=== PATIENT | female | born 1945 | race Caucasian/White ===

== ENCOUNTER 2016-07-20 06:44 | Inpatient (IN) | payer OTHER ==
[2016-07-01 10:48] VITALS: BMI 33.0
--- NOTE | 2016-07-01 11:24 | PAT Medication Instructions ---
Service Date Jul 01, 2016. Current Home Medication List Aspirin (Aspirin Ec), 81 MG PO QAM Carvedilol (Coreg), 1 TAB PO BID Lisinopril (Zestril), 20 MG PO QAM Metformin Hcl (Glucophage), 500 MG PO BID Pantoprazole (Protonix), 40 MG PO QAM Sertraline (Zoloft), 50 MG PO QAM Solifenacin (Vesicare), 10 MG PO QAM Tramadol (Ultram), 50 MG PO Q8H PRN for Pain Medication Instructions For Your Scheduled Surgery - Hold the following medications 48 hours prior to surgery: Metformin Hcl (Glucophage), 500 MG PO BID - Hold the following medications the morning of surgery: Solifenacin (Vesicare), 10 MG PO QAM Lisinopril (Zestril), 20 MG PO QAM - Take the following medications the morning of surgery with a sip of water: Sertraline (Zoloft), 50 MG PO QAM Pantoprazole (Protonix), 40 MG PO QAM Carvedilol (Coreg), 1 TAB PO BID Aspirin (Aspirin Ec), 81 MG PO QAM Tramadol (Ultram), 50 MG PO Q8H PRN for Pain (okay to take up to 4 hours prior to surgery if needed) - Take the following medications as scheduled the night before surgery: Carvedilol (Coreg), 1 TAB PO BID Tramadol (Ultram), 50 MG PO Q8H PRN for Pain (if needed) If you have any questions please call us at [phone] (Radha Rosado PA-C) or [phone] or [phone]
[2016-07-01 12:00] LABS: BASO % 0.5 %; BASO ABS # 0.05 K/uL (0-0.2); COMPLETE YES; EOS % 3.3 %; HEMATOCRIT 42.4 % (37-47); IG% 0.9 %; LYMPH % 18.9 %; LYMPH ABS # 1.99 K/uL (1.2-3.4); MEAN CELL VOLUME 84.3 fL (80-100); MEAN CORPUSCULAR HEMOGLOBIN 28.6 pg (25-34); MEAN PLATELET VOLUME 10.3 fL (7.4-10.4); MONO % 7.3 %; NEUT % 69.1 %; PLATELET COUNT 240 K/uL (130-400); RED BLOOD COUNT 5.03 M/uL (4.2-5.4); WHITE BLOOD COUNT 10.51 K/uL (4.8-10.8)
--- NOTE | 2016-07-01 12:10 | DIAGNOSTIC IMAGING REPORT ---
CHEST PREADMISSION(PA/LAT) HISTORY: Preop. COMPARISON: None. FINDINGS: The lungs are clear. Cardiac silhouette is normal in size. No pleural effusions. No pneumothorax. Prior cholecystectomy. IMPRESSION: No acute process. Electronically signed by: Porfirio Keyes M.D. 07/01/2016 12:08 PM
[2016-07-01 12:12] LABS: PROTHROMBIN TIME (PATIENT) 10.8 SECONDS (9.0-12.0)
[2016-07-01 12:28] LABS: BUN/CREATININE RATIO 13.6 (10-20); CALCIUM 8.8 mg/dl (8.5-10.1); CREATININE 0.76 mg/dl (0.60-1.20); POTASSIUM 4.2 mmol/L (3.5-5.1)
[2016-07-01 12:50] LABS: ESTIMATED AVERAGE GLUCOSE 157 mg/dl; HA1C FLAG Normal (Normal)
--- NOTE | 2016-07-19 13:21 | HISTORY & PHYSICAL EXAMINATION ---
DATE OF ADMISSION: 07/20/2016 CHIEF COMPLAINT: Right knee pain. HISTORY OF PRESENT ILLNESS: Ms. Alvarado is a 70-year-old female with a multiple-year history of pain in her right knee. The patient rates her pain an 8/10. She has pain with her daily activities. She has limited standing and walking tolerance. Pain is worse with weightbearing. The patient has had injections, home exercise program, tramadol and Tylenol. She has failed conservative treatment and is scheduled for right knee replacement. PAST MEDICAL HISTORY: Heart disease with 2 stents, diabetes with an A1c of 6.5, anxiety. She denies DVT. PAST SURGICAL HISTORY: Hysterectomy, cholecystectomy and cardiac angiography. SOCIAL HISTORY: The patient denies alcohol or tobacco use. She lives in a single story home. She is and retired. FAMILY HISTORY: Negative for DVT. MEDICATIONS: Aspirin 81 mg, pantoprazole 40 mg, sertraline 50 mg, carvedilol 6.25 mg b.i.d., lisinopril 20 mg daily, metformin 500 mg b.i.d., tramadol 50 mg p.r.n., Detrol-LA. ALLERGIES: NSAIDS CAUSES FLUSHING IN HIGH DOSES. REVIEW OF SYSTEMS: See HPI. Ten other systems reviewed, all negative. PHYSICAL EXAMINATION: VITAL SIGNS: Height 5 foot 5, weight 205 pounds. BMI 34. GENERAL: This is a well-developed, well-nourished female who is alert and oriented x3. Mood and affect are appropriate. HEENT: Normocephalic, atraumatic. Mucous membranes are moist and intact. NECK: Supple without lymphadenopathy. HEART: Regular rate and rhythm without murmurs, rubs or gallops. LUNGS: Clear to auscultation without wheezes or rhonchi. ABDOMEN: Soft and nontender. Bowel sounds are equal and active. EXTREMITIES: No ecchymosis, redness or warmth. She has neutral alignment. Range of motion is from 0-115 degrees with no laxity. She is neurovascularly intact with +5/5 strength. X-RAY EXAMINATION: AP and lateral views show joint space narrowing and osteophyte formation. IMPRESSION: 1. Degenerative joint disease, right knee. 2. Diabetes. PLAN: The patient will be admitted for a right total knee arthroplasty. Her PCP is Dr. Donny Cruz in [place]. She is planning [facility] for home physical therapy.
[~2016-07-20] VITALS: Ht 165.1 cm; Wt 93.2 kg
[2016-07-20] VITALS (8 sets, daily range): BP systolic 134–161; BP diastolic 75–92; PULSE 76–102; TEMP 36.4–36.9; O2SAT 93–98; BMI 34.0
[~2016-07-20 06:44] MED LIST: ACETAMINOPHEN 500 MG TAB PO SCH; ASPI81TA28 PO; BUPIVACAINE 0.25% 30 ML VIAL ONE; BUPIVACAINE 0.5 % 5 MG/1 ML PF 10ML VIAL ONE; CARV6.252 PO; CEFAZOLIN 2000 MG/60 ML D5W 60 ML IV SCH; CeleBREX 200 MG CAP PO SCH; DEXAMETHASONE 4 MG TAB PO SCH; FAMOTIDINE 20 MG TAB PO SCH; GABAPENTIN 300 MG CAP PO SCH; GLC/500 PO; LACTATED RINGER'S 1000ML 1,000 ML IV SCH; LACTATED RINGER'S 1000ML 500 ML IV ONE; LISI-725 PO; METOCLOPRAMIDE HCL 10 MG TAB PO SCH; OXYCODONE HCL 10 MG TABCR (OXYCONTIN) PO SCH; PANT40TA PO; POLYMYXIN B SULFATE 100,000 UNITS in NSS 100ML IR SCH; ROPIVACAINE 5MG/ML 30 ML 150 MG, BUPIVACAINE/EPINEPHR 0.5% MPF 30 ML, KETOROLAC TROMETH... INFIL SCH; SERT50TA PO; SOLI10TA2 PO; TRAM-10 PO; VANCOMYCIN INJ 400 MG in NSS 100ML IR SCH; [UNRECOGNIZED DRUG - REMARK] SCH
[2016-07-20] MEDS ORDERED: FENTANYL CITRATE INJ 50 MCG/1 ML 2 ML VIAL ONE (07:48)
[2016-07-20] MEDS ORDERED: MIDAZOLAM HCL 1 MG/ML 2ML VIAL ONE (07:48)
--- NOTE | 2016-07-20 08:24 | History & Physical Bridge Note ---
H&P Re-Evaluation Bridge Note: I have examined the patient, reviewed the History & Physical and in the interval since the performance of the History & Physical I have noted the following changes of clinical significance: No changes noted
[2016-07-20] MEDS ORDERED: ONDANSETRON INJ 2 MG/ML 2 ML VIAL IV PRN ×2 (08:30→12:30)
[2016-07-20] MEDS ORDERED: FENTANYL CITRATE INJ 50 MCG/1 ML 2 ML VIAL IV PRN (08:30)
[2016-07-20] MEDS ORDERED: ATROPINE SULFATE 0.1 MG/ML 5ML SYR IV PRN (08:30)
[2016-07-20] MEDS ORDERED: EpHEDrine SULFATE INJ 50 MG/ML AMP IV PRN (08:30)
[2016-07-20] MEDS: TRANEXAMIC ACID INJ 1,000 MG in SODIUM CHLORIDE 0.9% 100ML 100 ML IV SCH ×2 (08:40→15:18)
[2016-07-20] MEDS ORDERED: ORTHO JOINT ANESTHETIC ONE (09:15)
[2016-07-20] MEDS ORDERED: LIDOCAINE HCL 2% 2 ML VIAL (20MG/ML) ONE (11:26)
[2016-07-20] MEDS ORDERED: PROPOFOL IV EMULSION 10 MG/ML 20 ML VIAL IV ONE (11:26)
[2016-07-20] MEDS ORDERED: PHENYLEPHRINE 100MCG/ML 5ML SYR ONE (12:19)
[2016-07-20] MEDS ORDERED: BUPIVACAINE/EPINEPHRINE 0.25% 1:200,000 30 ML VIAL INJ ONE (12:24)
[2016-07-20] MEDS ORDERED: BACITRACIN 50000 UNIT VIAL IR ONE (12:24)
[2016-07-20] MEDS ORDERED: POVIDONE-IODINE OP SOLN 30 ML BTL TOP ONE (12:24)
--- NOTE | 2016-07-20 12:26 | [facility] Post Operative Brief Note ---
Immediate Operative Summary Operative Date Jul 20, 2016. Pre-Operative Diagnosis Right Knee Degenerative Joint Disease Post-Operative Diagnosis Right Knee Degenerative Joint Disease Procedure(s) Performed Right Total Knee Arthroplasty Cemented Surgeon Dr. Dada Kendall Icer Hand Surgeon(s) Jose Rafael Lutz PA-C Estimated Blood Loss 50ML Findings djd Specimens A. Right Knee Bone and Tissue Complication(s) None Disposition Recovery Room / PACU
[2016-07-20] MEDS ORDERED: ALUMINUM/MAGNESIUM/SIMETH (MAALOX MAX) 30 ML UDC PO PRN (12:30)
[2016-07-20] MEDS ORDERED: METOCLOPRAMIDE HCL INJ 5 MG/ML 2 ML VIAL IV PRN (12:30)
[2016-07-20] MEDS ORDERED: MoRPHine SULFATE 2 MG/ML CARP IV PRN (12:30)
[2016-07-20] MEDS ORDERED: SOD PHOSPHATE/SOD BIPHOSPHATE ENEMA 132 ML BTL PR PRN (12:30)
[2016-07-20] MEDS ORDERED: DiphenhydrAMINE HCL 50 MG/ML VIAL IV PRN (12:30)
[2016-07-20] MEDS ORDERED: TRAMADOL HCL 50 MG TAB PO PRN (12:30)
[2016-07-20] MEDS ORDERED: ZOLPIDEM TARTRATE 5 MG TAB PO PRN (12:30)
[2016-07-20] MEDS ORDERED: BISACODYL 10 MG SUPP PR PRN (12:30)
[2016-07-20] MEDS ORDERED: MAGNESIUM HYDROXIDE SUSP 30 ML UDC PO PRN (12:30)
[2016-07-20] MEDS ORDERED: PHARMACY GLYCEMIC MGMT CONSULT PRN (12:35)
--- NOTE | 2016-07-20 13:37 | DIAGNOSTIC IMAGING REPORT ---
TWO VIEWS RIGHT KNEE CLINICAL HISTORY: Postoperative examination. FINDINGS: AP and crosstable lateral portable views of the right knee are obtained. A right knee arthroplasty is in near anatomic alignment. There has been undersurface remodeling of the patella. No acute fracture is seen. There are expected postoperative changes around the knee including skin clips, a surgical drain, soft tissue edema, and subcutaneous gas. IMPRESSION: Expected postoperative changes status post right knee arthroplasty. No acute fracture is seen. Electronically signed by: Jayden Rooney M.D. 07/20/2016 1:35 PM Dictated Date/Time: 07/20/2016 1:34 PM
--- NOTE | 2016-07-20 14:02 | Anesthesiology Progress Note ---
Anesthesia Post Op Note Date & Time Jul 20, 2016 at 14:02 Vital Signs Pain Intensity: 0 Vital Signs Past 12 Hours Date Time Temp Pulse Resp B/P Pulse Ox O2 Delivery O2 Flow Rate FiO2 07/20/16 13:57 85 10 07/20/16 13:57 85 10 98 07/20/16 13:53 140/68 07/20/16 13:52 86 14 98 07/20/16 13:52 86 14 07/20/16 13:48 130/71 07/20/16 13:47 86 19 98 07/20/16 13:47 87 19 07/20/16 13:43 128/77 07/20/16 13:42 84 12 98 07/20/16 13:42 85 12 07/20/16 13:38 143/67 07/20/16 13:37 83 14 07/20/16 13:37 83 14 97 07/20/16 13:33 138/75 07/20/16 13:32 85 16 97 07/20/16 13:32 85 16 07/20/16 13:28 133/75 07/20/16 13:27 84 17 07/20/16 13:27 84 17 97 07/20/16 13:23 136/76 07/20/16 13:22 83 13 07/20/16 13:22 83 13 97 07/20/16 13:18 126/81 07/20/16 13:17 85 16 97 07/20/16 13:17 84 16 07/20/16 13:13 122/70 07/20/16 13:12 82 13 97 07/20/16 13:12 83 13 07/20/16 13:08 128/76 07/20/16 13:07 83 13 97 07/20/16 13:07 82 13 07/20/16 13:03 124/70 07/20/16 13:02 85 18 07/20/16 13:02 86 18 96 07/20/16 13:02 36.7 83 16 131/71 95 Nasal Cannula 2 07/20/16 08:21 36.7 76 20 147/78 95 Room Air Notes Mental Status: alert / awake / arousable, participated in evaluation Pt Amnestic to Procedure: Yes Nausea / Vomiting: adequately controlled Pain: adequately controlled Airway Patency, RR, SpO2: stable & adequate BP & HR: stable & adequate Hydration State: stable & adequate Neuraxial Anesthesia: was administered, sensory block is resolving Anesthetic Complications: no major complications apparent
--- NOTE | 2016-07-20 15:23 | Pharmacy Progress Note ---
Glycemic Control Intl Consult Date of Service Jul 20, 2016. Scope Glycemic Pharmacist consulted by Dr Kendall on 07/20/2016 for glycemic control and to write orders per [facility] inpatient glycemic control protocol Objective Weight (Kilograms): 93.200 Accuchecks BSG (last 24hrs): Test 07/20/16 08:05 07/20/16 13:18 Bedside Glucose 179 mg/dl (70-90) 206 mg/dl (70-90) HbA1c Test 07/01/16 11:34 Hemoglobin A1c 7.1 % (4.5-5.6) H Recent Pertinent Medications Outpatient Anti-diabetic Regimen: * metformin 500 mg BID * A1c = 7.1 % 07/11/16 Risk Factors for Insulin Resistance: * Steroids: dexamethasone 8 mg PO preop * Infection: * Pressors: * IVF: NS @ 100 cc/hr * Recent Surgery: POD 0 for R knee replacement * Diet: type 2 diabetic diet * Mechanical Ventilation: Assessment & Plan ASSESSMENT: * ADA & AACE recommend a goal blood sugar range 140-180 mg/dl for the majority of critically ill & non-critically ill patients. However, more stringent targets may be selected in individual cases. PLAN FOR INPATIENT GLYCEMIC CONTROL: * Holding outpatient oral diabetes medications * Correctional Insulin with NOVOLOG per scale ACHS * Goal Range: Low 100 mg/dL - High 140 mg/dL * Correction Factor: 25 mg/dL/unit * Nutritional / Prandial insulin per carb ratio of 1 unit per 10 grams CHO consumed * Please note that the plan above was derived based on current level of insulin resistance and hospital stress. These recommendations are appropriate for inpatient admission only. Plan of care upon discharge will need to be reassessed to avoid potential outpatient hypo/hyperglycemia. Thank you.
[2016-07-20] MEDS ORDERED: GLUCOSE 40% GEL 15 GM TUBE PO PRN (15:30)
[2016-07-20] MEDS ORDERED: DEXTROSE 50% 50 ML SYR IV PRN (15:30)
[2016-07-20] MEDS ORDERED: GLUCAGON FOR INJ 1 MG VIAL SQ PRN (15:30)
[2016-07-20] MEDS ORDERED: GLUCOSE 10 TABS/TUBE PO PRN (15:30)
[2016-07-20] MEDS: SODIUM CHLORIDE 0.9% 1000ML 1,000 ML IV SCH ×2 (15:38→23:02)
[2016-07-20] MEDS: ACETAMINOPHEN 500 MG TAB PO SCH ×2 (16:09→23:27)
--- NOTE | 2016-07-20 17:33 | OPERATIVE REPORT ---
DATE OF OPERATION: 07/20/2016 PREOPERATIVE DIAGNOSIS: Degenerative arthritis, right knee. POSTOPERATIVE DIAGNOSIS: Same. PROCEDURE: Right total knee patient matched implant. SURGEON: Dr. Herb Kendall. NET APPLICATIONS DEVELOPER: HIREN Briceño. ANESTHESIA: Spinal. BLOOD LOSS: 50 mL. REPLACEMENT FLUIDS: 1500 mL crystalloid. DRAINS: Hemovac x2. CULTURES: None. COMPLICATIONS: None. COMPONENTS USED: [employer] Knee System: Femur size 5, tibia size 4 x 11, and patella size 32. NOTE: HIREN Briceño was present and assisted throughout due to the complicated nature of this case. He helped with preparation and set up, first assisted throughout and personally closed the capsule, subcutaneous and skin layers and applied the postoperative dressing. DESCRIPTION OF PROCEDURE: Following satisfactory spinal, the patient was supine. A tourniquet was placed, but not inflated. The lower extremity was prepared with ChloraPrep and draped sterilely. Following a surgical time-out, a midline incision was made with a trivector approach. The knee showed grade 4 changes throughout, especially in the medial and patellofemoral compartments. The cruciate ligaments were excised. The patient matched femoral block was applied. Femoral distal rotation and resection were set and completed. The 4-in-1 block was used to finish preparation of the femur. The patient matched tibial block was applied. Tibial resection was completed. The patella was freehand cut. Soft tissue balancing was completed and a trial reduction showed good tensioning and stability on the collateral ligaments, stable range of motion, and the patella tracked well. The trial components were removed. The capsule was prepared with the orthopedic cocktail and after irrigation, the components were cemented using Simplex G cement. A Betadine soak was performed. When the cement had hardened, the Betadine was irrigated. Two drains were placed. The arthrotomy was closed with a running suture of 0 V-Loc. The subcutaneous tissues with 2-0 Vicryl and the skin with a running subcuticular stitch of 3-0 V-Loc. Dermabond and a dry dressing were applied. The patient was returned to her bed in stable condition. I attest to the content of the Intraoperative Record and any orders documented therein. Any exceptio ns are noted below.
[2016-07-20] MEDS: INSULIN ASPART 100 UNITS/ML 3 ML PEN SC SCH ×2 (18:23→21:17)
[2016-07-20] MEDS: OXYCODONE HCL IR 5 MG TAB (IMMEDIATE RELEASE) PO PRN ×2 (18:44→23:33)
[2016-07-20] MEDS: CEFAZOLIN IV 2,000 MG in DEXTROSE 5% 50ML 50 ML IV SCH (19:37)
[2016-07-20] MEDS: ASPIRIN 81 MG ECTAB PO SCH (20:27)
[2016-07-20] MEDS: CARVEDILOL 6.25 MG TAB PO SCH (20:27)
[2016-07-20] MEDS: OXYCODONE HCL 10 MG TABCR (OXYCONTIN) PO SCH (20:32)
[2016-07-20] MEDS ORDERED: LANTUS PER UNIT CHARGE SQ SCH (21:00)
[2016-07-20] MEDS ORDERED: SENNA 8.6 MG TAB PO SCH (21:00)
[2016-07-21] MEDS: CEFAZOLIN IV 2,000 MG in DEXTROSE 5% 50ML 50 ML IV SCH (03:54)
[2016-07-21 04:15] VITALS: BP 157/87; PULSE 97; TEMP 36.6; O2SAT 95
[2016-07-21 06:59] LABS: HEMATOCRIT 34.5 % (37-47); MEAN CELL VOLUME 83.3 fL (80-100); MEAN CORPUSCULAR HGB CONC 33.6 g/dl (32-36); MEAN PLATELET VOLUME 10.4 fL (7.4-10.4); PLATELET COUNT 245 K/uL (130-400); RED BLOOD COUNT 4.14 M/uL (4.2-5.4); WHITE BLOOD COUNT 17.58 K/uL (4.8-10.8)
[2016-07-21 07:26] LABS: BUN/CREATININE RATIO 16.8 (10-20); CALCIUM 8.6 mg/dl (8.5-10.1); CREATININE 0.79 mg/dl (0.60-1.20); POTASSIUM 4.1 mmol/L (3.5-5.1)
[2016-07-21 07:45] VITALS: BP 134/80; PULSE 93; TEMP 36.7; O2SAT 99
--- NOTE | 2016-07-21 08:02 | Orthopedic Progress Note ---
Orthopedic Progress Note Date of Service Jul 21, 2016. Subjective Post OP Day: 1 Reports: feeling well, pain controlled w PO medications, Denies: SOB, light headedness, nausea / vomiting Objective calves soft nontender, N/V intact, dressing C/D/I, A&O x3, toes mobile, hemovac drainage (150 LAST SHIFT ) Date Time Temp Pulse Resp B/P Pulse Ox O2 Delivery O2 Flow Rate FiO2 07/21/16 04:15 36.6 97 18 157/87 95 Room Air 07/20/16 23:30 36.5 100 16 134/75 93 Room Air 07/20/16 19:30 Room Air 07/20/16 19:20 36.8 102 16 155/88 96 Room Air 07/20/16 17:28 98 146/85 98 Nasal Cannula 2.0 07/20/16 16:16 92 18 161/92 96 Nasal Cannula 2.0 07/20/16 15:36 36.4 92 18 139/83 97 Nasal Cannula 2.0 07/20/16 14:50 36.5 91 18 138/83 96 Nasal Cannula 2.0 07/20/16 14:20 36.9 88 16 145/83 96 Nasal Cannula 2.0 07/20/16 14:20 Venturi Mask 2.0 07/20/16 14:20 96 Nasal Cannula 2.0 07/20/16 14:00 36.8 86 15 141/74 97 Nasal Cannula 2 07/20/16 13:57 85 10 07/20/16 13:57 85 10 98 07/20/16 13:53 140/68 07/20/16 13:52 86 14 98 07/20/16 13:52 86 14 07/20/16 13:48 130/71 07/20/16 13:47 86 19 98 07/20/16 13:47 87 19 07/20/16 13:43 128/77 07/20/16 13:42 84 12 98 07/20/16 13:42 85 12 07/20/16 13:38 143/67 07/20/16 13:37 83 14 07/20/16 13:37 83 14 97 07/20/16 13:33 138/75 07/20/16 13:32 85 16 97 07/20/16 13:32 85 16 07/20/16 13:28 133/75 07/20/16 13:27 84 17 07/20/16 13:27 84 17 97 07/20/16 13:23 136/76 07/20/16 13:22 83 13 07/20/16 13:22 83 13 97 07/20/16 13:18 126/81 07/20/16 13:17 85 16 97 07/20/16 13:17 84 16 07/20/16 13:13 122/70 07/20/16 13:12 82 13 97 07/20/16 13:12 83 13 07/20/16 13:08 128/76 07/20/16 13:07 83 13 97 07/20/16 13:07 82 13 07/20/16 13:03 124/70 07/20/16 13:02 85 18 07/20/16 13:02 86 18 96 07/20/16 13:02 36.7 83 16 131/71 95 Nasal Cannula 2 07/20/16 08:21 36.7 76 20 147/78 95 Room Air Laboratory Results 24 Hours: Test 07/21/16 06:26 Hematocrit 34.5 % Hemoglobin 11.6 g/dL Assessment & Plan Assessment: POD 1 TKA Plan: HOME TODAY AFTER PT [facility] Inhouse Planning Pain Management: Oxycontin, PO Tylenol, Oxy IR DVT Prophylaxis: TEDs, SCDs, ASA Discharge Planning Discharge Planning: home with home health Pain Management: Oxycontin, PO Tylenol, Oxy IR DVT Prophylaxis: TEDs, ASA
[2016-07-21] MEDS ORDERED: SNK PO (08:18)
[2016-07-21] MEDS ORDERED: ASPI81TA28 PO (08:18)
[2016-07-21] MEDS ORDERED: RXC5 PO (08:18)
[2016-07-21] MEDS ORDERED: ONDA8TAB6 PO (08:18)
[2016-07-21] MEDS ORDERED: ACET-1138 PO (08:18)
[2016-07-21] MEDS ORDERED: LANTUS PER UNIT CHARGE SQ STA (08:19)
--- NOTE | 2016-07-21 08:19 | Discharge Instructions ---
Discharge Instructions Admission Reason for Admission: Right Knee Degenerative Arthritis Discharge Discharge Diagnosis / Problem: sp right TKA Discharge Goals Goal(s): Decrease discomfort, Improve function, Increase independence Activity Recommendations Activity Limitations: per Instructions/Follow-up section . Instructions / Follow-Up Instructions / Follow-Up ACTIVITY RECOMMENDATIONS: SELF CARE INSTRUCTIONS AFTER TOTAL KNEE REPLACEMENT A. You may need to continue a physical therapy program after discharge from the hospital. There are several options available to you. Your doctor will assist you in selecting the best one for you. 1. An out-patient facility 2 to 3 times a week for therapy or home therapy. 2. Continue working on all exercises taught to you in the hospital. Your goals should be to increase bending of your knee to 90 degrees and beyond and to fully straighten your knee. B. You may progress at your own pace from walking with a walker or crutches to a cane; then to no assistive devices. C. Make walking a part of your daily routine. Be up as much as comfortable with rest periods throughout the day. Rest with leg elevation is very important. Use the ice wrap frequently for the first 3-4 weeks. D. There are no restrictions on activities. You may ride in a car, shop, participate in yarn spinner and all social activities. E. Wear the long elastic stockings (KIMBERLI hose) 20 hours a day for 2 weeks after surgery. They can be removed several times a day for laundering and for a bath. F. You may shower, no tub baths until cleared by your doctor. SPECIAL CARE INSTRUCTIONS: VERY IMPORTANT TO READ AND REVIEW A. There are a few signs you need to watch for after you are home. Call [facility] if you notice any of the followin. Increased severe knee pain. Some pain is expected especially when you exercise. 2. Increased swelling in your leg or knee; pain or swelling of the calf muscle in either lower leg. 3. Any fluid drainage from the incision. 4. Shortness of breath or chest pain. B. Please call [facility] at if you have any concerns or questions about your operation or recovery. The doctor or his nurse will return your call promptly. C. You must take antibiotics before dental work, bladder, bowel or other surgery. Your doctor will provide you with a permanent care to carry describing this precaution. IMPORTANT: * REMEMBER TO TAKE ASPIRIN, 81 MG, TWICE DAILY FOR 4 WEEKS UNLESS OTHERWISE DIRECTED. THIS IS YOUR BLOOD THINNER. * HIGH RISK PATIENTS MAY BE PRESCRIBED A STRONGER BLOOD THINNER. THIS WILL BE PROVIDED AT DISCHARGE. * CALL IF INCREASED PAIN, REDNESS, DRAINAGE OR FEVER GREATER THAT 101. * WEAR KIMBERLI HOSE 20 HOURS PER DAY FOR 2 WEEKS. DERMABOND Prineo- This is a mesh tape dressing that is covered with glue. It should remain in place until the incision is properly healed, usually 10-14 days. This dressing is designed to naturally slough off. You may trim the excess mesh tape as it peels off. Incision may be briefly wet in a shower. Dry immediately by blotting with a clean, dry towel. Do not bath or swim until instructed by your doctor. Do not scratch, rub, or pick at the dressing. Do not apply any topical ointments or lotions until dressing is completely removed and/or instructed by your doctor. There may be a small piece of suture material at one end of your incision. Do not pull or trim this. If it is bothersome or catching on clothing, you may cover it with a band-aid. FOLLOW UP VISIT: If appointment is not already scheduled: Please call [facility] to make a follow-up appointment for 2 weeks after your surgery at . Current Hospital Diet Patient's current hospital diet: Diabetes Type 2 Diet Discharge Diet Recommended Diet: Regular Diet Procedures Procedures Performed: Right Total Knee Arthroplasty Cemented Pending Studies Studies pending at discharge: no Laboratory Results Hemoglobin A1c Test 07/01/16 11:34 Range/Units Estimated Average Glucose 157 mg/dl Hemoglobin A1c 7.1 H 4.5-5.6 % Medical Emergencies . Who to Call and When: Medical Emergencies: If at any time you feel your situation is an emergency, please call 911 immediately. . Non-Emergent Contact Non-Emergency issues call your: Primary Care Provider . "Provider Documentation" section prepared by Jane Brito. VTE Core Measure Inpt VTE Proph given/why not?: Other Anticoagulation, T.E.D. Stockings, SCD's
[2016-07-21] MEDS ORDERED: MORP-157 PO (08:20)
[2016-07-21] MEDS: OXYCODONE HCL 10 MG TABCR (OXYCONTIN) PO SCH (08:39)
[2016-07-21] MEDS: ASPIRIN 81 MG ECTAB PO SCH (08:40)
[2016-07-21] MEDS: OXYCODONE HCL IR 5 MG TAB (IMMEDIATE RELEASE) PO PRN ×2 (08:40→13:01)
[2016-07-21] MEDS: CARVEDILOL 6.25 MG TAB PO SCH (08:40)
[2016-07-21] MEDS: ACETAMINOPHEN 500 MG TAB PO SCH (08:42)
[2016-07-21] MEDS: INSULIN ASPART 100 UNITS/ML 3 ML PEN SC SCH ×2 (08:51→13:00)
[2016-07-21] MEDS ORDERED: MULTIVITAMIN TAB PO SCH (09:00)
[2016-07-21] MEDS ORDERED: SERTRALINE HCL 50 MG TAB PO SCH (09:00)
[2016-07-21] MEDS ORDERED: LISINOPRIL 20 MG TAB PO SCH (09:00)
[2016-07-21] MEDS ORDERED: PANTOprazole SOD 40 MG TAB PO SCH (09:00)
[2016-07-21] MEDS ORDERED: SOLIFENACIN 10 MG PO SCH (09:00)
[2016-07-21] MEDS: SODIUM CHLORIDE 0.9% 1000ML 1,000 ML IV SCH (09:51)
--- NOTE | 2016-07-21 09:52 | Anesthesiology Progress Note ---
Anesthesia Post Op Note Date & Time Jul 21, 2016 at 09:52 Vital Signs Pain Intensity: 8.0 Vital Signs Past 12 Hours Date Time Temp Pulse Resp B/P Pulse Ox O2 Delivery O2 Flow Rate FiO2 07/21/16 07:45 36.7 93 18 134/80 99 Room Air 07/21/16 07:35 Room Air 07/21/16 04:15 36.6 97 18 157/87 95 Room Air 07/20/16 23:30 36.5 100 16 134/75 93 Room Air Notes Mental Status: alert / awake / arousable, participated in evaluation Pt Amnestic to Procedure: Yes Nausea / Vomiting: adequately controlled Pain: adequately controlled Airway Patency, RR, SpO2: stable & adequate BP & HR: stable & adequate Hydration State: stable & adequate Neuraxial Anesthesia: sensory block resolved Anesthetic Complications: no major complications apparent
[2016-07-21 10:50] VITALS: BP 125/76; PULSE 89; TEMP 36.7; O2SAT 96
[2016-07-21 11:16] VITALS: BP 134/80; PULSE 93; TEMP 36.7; O2SAT 99
[2016-07-21 13:33] VITALS: Ht 165.1 cm; Wt 93.2 kg
--- NOTE | 2016-07-26 16:33 | DISCHARGE SUMMARY ---
NOTICE TO RECEIVING LIBERTARIAN/AGENCY This information is strictly Confidential and protected under [place] law. [place] law prohibits you from making any further disclosure of this information unless further disclosure is expressly permitted by the written consent of the person to whom it pertains or is authorized by law. A general authorization for the release of medical or other information is not sufficient for this purpose. Hospital accepts no responsibility if the information is made available to any other person, INCLUDING THE PATIENT. DISCHARGE DIAGNOSIS: Degenerative joint disease, right knee. SECONDARY DIAGNOSES: Coronary artery disease with stenting x2, diabetes mellitus, anxiety. CONSULTS: None. COMPLICATIONS: None. PROCEDURES: Right total knee arthroplasty performed by Dr. Dada Kendall on 07/20/2016. BRIEF HISTORY: As dictated in the history and physical. HOSPITAL SUMMARY: The patient was admitted on the above date and had the above-noted surgery performed which she tolerated well. On the first postoperative day, patient was feeling well and pain was controlled. She had no complaints. Calves were soft and nontender, neurovascularly intact. Dressings clean, dry and intact. Toes were mobile. Vital signs were stable and she was afebrile. Hemoglobin was 11.6 and she was started on physical therapy protocol and continued on DVT prophylaxis and pain management. She was progressing well with physical therapy and remaining independent with ambulation. Pain was remaining controlled and she was stable and it was felt she could be discharged to home on 07/21/2016. For further review, please see chart. LAB AND X-RAY DATA: As per chart. DISCHARGE INSTRUCTIONS: The patient was discharged to home in satisfactory condition on 07/21/2016. DIET: Diabetic. ACTIVITY: Follow TK instruction sheets and special care instructions as noted. Follow up with Dr. Dada Kendall in 2 weeks. The patient to call for appointment if one has not been made for you. DISCHARGE MEDICATIONS: Acetaminophen 1000 mg p.o. q. 8 hours, morphine sulfate 15 mg p.o. q. 12 hours, Zofran 8 mg p.o. q. 8 hours p.r.n., oxycodone 5-10 mg p.o. q. 4 hours p.r.n., senna 17.2 mg at bedtime. Resume taking carvedilol 6.25 mg p.o. b.i.d., lisinopril 20 mg p.o. q.a.m., metformin 500 mg p.o. b.i.d., pantoprazole 40 mg p.o. q.a.m., Zoloft 50 mg p.o. q.a.m., VESIcare 10 mg p.o. q.p.m., Tramadol 50 mg p.o. q. 8 hours p.r.n., aspirin 81 mg p.o. b.i.d. for 30 days; after 30 days, resume taking the once daily dosing only.
== END 2016-07-21 13:37 | disposition home health service (06) | DRG 470 ==
LOC: ENRESERVTM → ENRESERVDT → C.ACU 06:44 → C.3E 08:00
PROVIDERS: ADMIT Orthopaedic Surgery; ATTEND Orthopaedic Surgery
PROC: 0SRC0J9 Replacement of Right Knee Joint with Synthetic Substitute, Cemented, Open Approach (ICD-10-PCS; principal; 2016-07-20 10:00)
DX: M17.11 Unilateral primary osteoarthritis, right knee (principal); I10 Essential (primary) hypertension; I25.10 Atherosclerotic heart disease of native coronary artery without angina pectoris; E11.9 Type 2 diabetes mellitus without complications; E66.9 Obesity, unspecified; Z68.34 Body mass index [BMI] 34.0-34.9, adult; Z95.5 Presence of coronary angioplasty implant and graft; Z87.891 Personal history of nicotine dependence; Z79.82 Long term (current) use of aspirin; Z79.84 Long term (current) use of oral hypoglycemic drugs; Z79.891 Long term (current) use of opiate analgesic; Z79.899 Other long term (current) drug therapy